=== PATIENT | male | born 1985 | race Caucasian/White ===

== ENCOUNTER 2016-11-25 11:32 | Day surgery (SDC) | payer OTHER ==
[~2016-11-25] VITALS: Ht 180.3 cm; Wt 95.5 kg
[~2016-11-25 11:32] MED LIST: None per pt
[2016-11-25] MEDS ORDERED: LACTATED RINGERS 1,000 ML IV SCH ×2 (11:50→14:48)
[2016-11-25 12:15] VITALS: BP 128/82
[2016-11-25] MEDS ORDERED: BUPIVACAINE/PF 0.5% ONE (12:35)
[2016-11-25] MEDS ORDERED: BUPIVACAINE/PF-EPI 0.25% 1:200K ONE (12:35)
[2016-11-25] MEDS ORDERED: MIDAZOLAM 1 MG/ML, 2ML ONE (13:11)
[2016-11-25] MEDS ORDERED: FENTANYL PF 250 MCG/5ML ONE (13:11)
[2016-11-25] MEDS ORDERED: DEXAMETHASONE 4 MG/ML, 1ML ONE (13:30)
[2016-11-25] MEDS ORDERED: PROPOFOL 10 MG/ML, 50ML ONE (13:30)
[2016-11-25] MEDS ORDERED: CEFAZOLIN 1,000 MG ONE (13:30)
[2016-11-25] MEDS ORDERED: LIDOCAINE 2% 100MG/5ML SYRINGE ONE (13:30)
[2016-11-25] MEDS ORDERED: PROMETHAZINE 25 MG/ML, 1ML IM PRN (15:00)
[2016-11-25] MEDS ORDERED: METOPROLOL 1 MG/ML, 5ML IV PRN (15:00)
[2016-11-25] MEDS ORDERED: ACETAMINOPHEN 325 MG TABLET PO PRN (15:00)
[2016-11-25] MEDS ORDERED: HYDROmorphone 1 MG/ML, 1ML IV PRN (15:00)
[2016-11-25] MEDS ORDERED: ONDANSETRON 2MG/ML, 2ML IVPush PRN (15:00)
[2016-11-25] MEDS ORDERED: hydrALAzine 20 MG/ML, 1ML IV PRN (15:00)
[2016-11-25] MEDS ORDERED: morphine SULFATE 10 MG/ML, 1ML IVPush PRN (15:00)
[2016-11-25] MEDS ORDERED: OXYcodone 5 MG/5 ML ORAL.SOL UDC PO PRN (15:00)
[2016-11-25] MEDS ORDERED: MEPERIDINE/PF 25MG/0.5ML IVPush PRN (15:00)
[2016-11-25] MEDS ORDERED: ALBUTEROL SULFATE 2.5 MG/3 ML NPPB PRN (15:00)
[2016-11-25] MEDS ORDERED: FENTANYL PF 100 MCG/2ML IV PRN (15:00)
[2016-11-25] MEDS ORDERED: FENTANYL PF 100 MCG/2ML ONE (15:05)
[2016-11-25] MEDS ORDERED: OXYcodone 5 MG/5 ML ORAL.SOL UDC ONE (15:05)
[2016-11-25] MEDS ORDERED: MORPHINE SULFATE 4 MG/ML, 1ML ONE (16:17)
[2016-11-25] MEDS ORDERED: ONDANSETRON ODT 4 MG ONE (17:09)
[2016-11-25] MEDS ORDERED: ONDANSETRON ODT 4 MG PO PRN (17:30)
== END 2016-11-25 17:50 | disposition home or self-care (01) ==
LOC: OUT 11:32
PROVIDERS: ATTEND Surgery
DX: K41.90 Unilateral femoral hernia, without obstruction or gangrene, not specified as recurrent (principal); Z72.89 Other problems related to lifestyle; Z82.49 Family history of ischemic heart disease and other diseases of the circulatory system; Z84.89 Family history of other specified conditions
CPT/HCPCS: 49550; C1781; J0690; J1100; J2250; J2270; J2704; J3010; J7120; Q0162; J3490